=== PATIENT | male | born 1965 | race Caucasian/White ===

== ENCOUNTER 2020-03-10 16:07 | Emergency (ER) | payer BC, SELFPAY ==
[2020-03-10 16:17] VITALS: BP 153/98; PULSE 83; RESP 18; TEMP 36.8
--- NOTE | 2020-03-10 16:30 | ED.WOUNDLAC ---
HPI - Wound/Laceration General Chief Complaint: Wound/Laceration Stated Complaint: right index finger lac Time Seen by Provider: 03/10/20 16:25 Source: patient and RN notes reviewed Mode of arrival: ambulatory Limitations: no limitations History of Present Illness HPI narrative: 55-year-old male who presents to [facility] with complaints of avulsion type wound to his right index finger which occurred approximately 30 minutes prior to arrival at [facility] while he was cutting potatoes. Patient states that he can't get bleeding stopped with right index finger noted to have an avulsion of the tip of right index finger which was approximately 1cm in diameter with no injury to nail bed. Patient states that he has no tingling or numbness to his right index finger, full mobility intact to right index finger and circulation intact. Patient states that he is not sure when his last Tetanus was received. Onset (ago): minute(s) (30) Location: other Extremity Location: Right: hand (right index finger) Place: home Patient tetanus UTD: No Context: accidental Associated symptoms: none Treatments prior to arrival: bandage Related Data Home Medications Medication Instructions Recorded Confirmed atorvastatin 03/10/20 lisinopril 03/10/20 03/10/20 Allergies Allergy/AdvReac Type Severity Reaction Status Date / Time No Known Allergies Allergy Verified 03/10/20 16:44 Review of Systems Review of Systems: Narrative: CONSTITUTIONAL: Denies fever, chills, or sweats. EYES: Denies visual changes, redness, or discharge. ENT: Denies rhinorrhea, congestion, sore throat, or otalgia. CARDIOVASCULAR: Denies chest pain, palpitations, or edema. RESPIRATORY: Denies cough or dyspnea. GASTROINTESTINAL: Denies abdominal pain, nausea, vomiting, or diarrhea. GENITOURINARY: Denies dysuria or hematuria. SKIN: Denies rash or itching, skin avulsion right index finger MUSCULOSKELETAL: Denies back pain, joint pain, Positive for pain to tip of right index finger due to avulsion of skin. NEUROLOGIC: Denies headache, numbness, or weakness. PSYCHIATRIC: Denies anxiety or depression. All systems reviewed & are unremarkable except as noted in HPI and below PMFSH Past Medical History Medical History (Updated 03/11/20 @ 00:00 by Scott Pandya) Fracture, finger Hyperlipidemia Hypertension Family History Family History (Updated 10/22/20 @ 16:52 by Emily Fajardo NP) Father Hypertension Sibling Diabetes mellitus Social History Social History (Updated 03/10/20 @ 16:51 by Emily Fajardo NP) Smoking packs per day: 1 Smoking cigarettes per day: 20.0 Years smoked: 30 Smoking pack-years: 30.00 Smoking status: Former smoker Tobacco type: cigarettes Alcohol intake: current Substance use: never Living arrangements: with family Gender identity (if verbalized by the patient): Male Comments At time of signature, agree with nursing past medical, surgical, social and family history. There is no relevant family history pertinent to the presenting complaint Exam Narrative: Exam Narrative: GENERAL: Well-appearing, well-nourished, and in no acute distress. HEAD: Normocephalic, atraumatic. EYES: PERRLA and EOMI. ENT: Nares clear, no rhinorrhea or epistaxis. Mucous membranes moist. NECK: Supple.no lymphadenopathy CHEST: Clear to auscultation. No respiratory distress.SAO2 98% on room air HEART: Regular rate and rhythm. No murmur heard. Normal peripheral pulses. ABDOMEN: Soft, nontender, nondistended, normal active bowel sounds. EXTREMITIES: Normal range of motion. No edema. laceration of tip of right index finger with avulsion of tissue with no injury to nail or nail bed, patient has full mobility of his right index finger with some throbbing pain verbalized, Bleeding acutely upon arrival stopped with use of Surgicel wound dressing. Adequate sensation, mobility and circulation to right index finger SKIN: Warm, dry, no rash. NEURO: No focal
[2020-03-10] MEDS: TETANUS,DIPHTHERIA,AC PERTUSSIS ADULT (0.5 ML) BOOSTRIX IM (17:31)
--- NOTE | 2020-03-10 18:53 | PC.NURSE ---
1731-Pt instructed would need to wait 20 minutes after tetnus shot to observe for reactions. Pt verbalized understanding.
== END 2020-03-10 17:51 | disposition home or self-care (01) ==
PROVIDERS: Emergency Provider Registered Nurse
DX: S61.210A Laceration without foreign body of right index finger without damage to nail, initial encounter (principal); W45.8XXA Other foreign body or object entering through skin, initial encounter; Y93.G9 Activity, other involving cooking and grilling; Z23 Encounter for immunization; F17.210 Nicotine dependence, cigarettes, uncomplicated; E78.5 Hyperlipidemia, unspecified; I10 Essential (primary) hypertension
CPT/HCPCS: 12001; 90471; 90715; 99213; G0463